=== PATIENT | female | born 1975 | race Caucasian/White ===

== ENCOUNTER → 2017-02-20 | Day surgery (SDC) | payer OTHER ==
[~2017-02-20] VITALS: Ht 170.2 cm; Wt 72.6 kg
[~2017-02-20] MED LIST: LIDOCAINE 2% INJ 100 MG/5 ML SDV (FOR ANES.) As Ordered ONE; LR 1,000 ML IV SCH; MIDAZOLAM INJ 2 MG/2 ML VIAL (J2250) As Ordered ONE; NAPR500T6 PO; ONDANSETRON 4MG/2ML VIAL (J2405) As Ordered ONE; PERCOCET 5MG/325MG TAB As Ordered ONE; PERCOCET 5MG/325MG TAB PO PRN; PROPOFOL 500 MG/50 ML VIAL As Ordered ONE; RIZA5TAB PO; TYLE650T35 PO; fentaNYL 100 MCG/2 ML INJECTION (J3010) As Ordered ONE
--- NOTE | 2017-02-20 08:01 | REP ---
Supine abdomen single AP view: Comparison is the CT of the abdomen pelvis dated 01/21, 10/21/2016. There is a 5 ml calcification projected over the mid pole of the left kidney. No other calcifications are identified superimposed over the kidneys on this plain film study . There are multiple calcifications in the pelvis, unchanged from the comparison CT, likely phleboliths. The bowel gas pattern is normal. There is lumbar scoliosis convex left at the thoracolumbar junction, unchanged. Signed by Izaiah High MD 02/20/2017 07:52 A
[2017-02-20 09:25] VITALS: BP 130/83
--- NOTE | 2017-02-21 21:52 | RO ---
DATE OF PROCEDURE: 02/20/2017 PREPROCEDURE DIAGNOSIS: Left kidney stone of about 6 mm in diameter. POSTPROCEDURE DIAGNOSIS: Left kidney stone of about 6 mm in diameter. FINDINGS: Left lower pole kidney stone 6 mm in diameter. PROCEDURE: Left extracorporeal shock wave lithotripsy. SURGEON: Yaniv Asif MD CLINIC PHYSICIAN DIRECTOR: None. ANESTHESIA: MAC. COMPLICATIONS: None. ESTIMATED BLOOD LOSS: N/A. HISTORY OF THE PRESENT ILLNESS: A 41-year-old female patient that has a left lower pole kidney stone, 6 mm in diameter. She has left flank pain. For this reason, she has consented for a left extracorporeal shock wave lithotripsy. DESCRIPTION OF OPERATION: With the patient under general anesthesia in supine position after finding the stone with ultrasound x-ray, we gave a total of 2500 shock waves from a power of 1 to 20. She tolerated well the procedure. The first 100 shock waves were at a level of 6 to 10, the final 100 shock waves were at level of 10 to 15, and the following 2300 shock waves was at level of 16 to 20. The patient tolerated well the procedure. There were no complications. PLAN: The patient will go home with pain medication. She is allergic to Flomax and sulfa drugs. For this reason, we have not given her sulfa drugs or we have not given her Flomax, which is a Sulfa derivative medication. She will increase her water intake to about 3 liters a day and she will follow at [facility] in about 3 weeks and at that moment in time, will assess with a CT scan if she still has a stone.
== END | disposition home or self-care (01) ==
LOC: M SDC 06:09
PROVIDERS: ATTEND Urology
DX: N20.0 Calculus of kidney (principal); G43.909 Migraine, unspecified, not intractable, without status migrainosus; Z88.2 Allergy status to sulfonamides; Z79.899 Other long term (current) drug therapy
CPT/HCPCS: 50590; 74000; J0690; J2250; J2405; J3010